=== PATIENT | female | born 1955 | race African-American/Black ===

== ENCOUNTER → 2020-01-30 | Outpatient (CLI) | payer OTHER | LOC: LAB 08:09 | PROVIDERS: ATTEND Family Medicine | DX: Z20.828 Contact with and (suspected) exposure to other viral communicable diseases (principal) ==

== ENCOUNTER → 2020-02-06 | Outpatient (CLI) | payer OTHER ==
[2020-02-06 11:45] LABS: ABSOLUTE NEUTROPHILS 5.3 thou/uL (1.4-8.2); BASOPHILS 0.8 % (0.0-2.0); EOSINOPHILS 1.9 % (0.0-3.0); HEMATOCRIT 35.6 % (37.0-47.0); HEMOGLOBIN 11.4 gm/dL (12.0-15.0); LYMPHOCYTES 26.5 % (24.0-44.0); MCH 24.1 pg (26.0-34.0); MCHC 31.9 g/dL (28.0-37.0); MCV 75.4 fL (80.0-100.0); MONOCYTES 6.2 % (1.0-8.0); PLATELET COUNT 238 thou/uL (150-400); POLYS 64.6 % (36.0-66.0); RBC 4.72 mil/uL (4.20-5.00); RDW 15.7 % (10.5-14.5); WBC 8.2 thou/uL (4.0-11.0)
[2020-02-06 12:22] LABS: ALBUMIN 3.6 g/dL (3.4-5.0); ANION GAP 10 mmol/L (7-16); BUN 10 mg/dL (7-18); CALCIUM 9.1 mg/dL (8.5-10.1); CHLORIDE 105 mmol/L (98-107); CHOLESTEROL 269 mg/dL (<200); CO2 27 mmol/L (21-32); CREATININE 1.1 mg/dL (0.6-1.0); GLUCOSE 98 mg/dL (74-106); HDL CHOLESTEROL 116 mg/dL (>40); LDL CHOLESTEROL 136 mg/dL (<100); POTASSIUM 3.9 mmol/L (3.5-5.1); SGOT 27 U/L (15-37); SGPT 26 U/L (30-65); SODIUM 142 mmol/L (136-145); TC:HDL 2.3 Ratio (Not establshd); TOTAL BILIRUBIN 0.3 mg/dL (0.2-1.0); TOTAL PROTEIN 7.2 g/dL (6.4-8.2); TRIGLYCERIDE 86 mg/dL (<150); VLDL 17 mg/dL (<40)
[2020-02-07 02:06] LABS: GLYCOHEMOGLOBIN (HGB A1C) 5.6 % (4.8-5.6)
== END ==
LOC: LABMALL 11:19
PROVIDERS: ATTEND Family Medicine
DX: Z00.00 Encounter for general adult medical examination without abnormal findings (principal)

== ENCOUNTER → 2020-02-11 | Outpatient (CLI) | payer OTHER | LOC: RAD 10:01 | PROVIDERS: ATTEND Family Medicine | DX: Z12.31 Encounter for screening mammogram for malignant neoplasm of breast (principal); E04.2 Nontoxic multinodular goiter; R59.0 Localized enlarged lymph nodes ==

== ENCOUNTER → 2020-05-19 | Outpatient (CLI) | payer OTHER | LOC: LAB 13:45 | PROVIDERS: ATTEND Family Medicine | DX: Z20.828 Contact with and (suspected) exposure to other viral communicable diseases (principal) ==

== ENCOUNTER → 2021-03-04 | Outpatient (CLI) | payer OTHER | LOC: BC 13:49 | PROVIDERS: ATTEND Family Medicine | DX: Z12.31 Encounter for screening mammogram for malignant neoplasm of breast (principal); N64.89 Other specified disorders of breast ==

== ENCOUNTER → 2021-05-13 | Outpatient (CLI) | payer OTHER ==
[~2021-05-13] VITALS: Ht 162.6 cm; Wt 87.5 kg
[~2021-05-13] MED LIST: ACYCLOVIR 200200 MG PO; ASA81BEC PO; DULOXETINE HCL30 MG PO; NORVASC5 MG PO; PROVENTIL HFA6.7 G1 INH; VITAMIN C1000 MG PO; VITAMIN D325 MC2 PO
--- NOTE | 2021-05-16 11:02 | P ---
[facility] [place] [address] PROCEDURE REPORT Name: CAROL ISRAEL Room #: REG SHAHNAZ BynumCarlos AlbertoBrendaCarlos Alberto#: [id number] Admission: 05/13/21 Attend Phys: Nahid Younger Discharge: Date of : 55 Report #: [id number] THIS REPORT FOR: cc: Robbi Avina James A. DO McElhinney, Christian C. MD ~ DATE OF SERVICE: 05/13/2021 PROCEDURE PERFORMED: Upper endoscopy with esophageal dilation. HISTORY OF PRESENT ILLNESS: The patient is a 65-year-old female with a history of dysphagia for approximately 1 year. Denies any heartburn. No previous history of upper endoscopy. She is not taking any antacids. Plan is for upper endoscopy. DESCRIPTION OF PROCEDURE: The risks and benefits of the procedure were explained to the patient, those risks including but not limited to bleeding, perforation and the risk of sedation. She understood these risks and gave informed consent. Sedation was given using propofol per anesthesia. Next, using a standard Olympus upper endoscope, the scope was placed in the patient's mouth and advanced under direct vision through the esophagus, stomach and into the second portion of the duodenum. The larynx was normal in appearance. The upper and mid esophagus was normal. In the distal esophagus at the GE junction, grade a mild erosive esophagitis was noted. No evidence of stricture or narrowing. Upon entering the stomach, a small hiatal hernia was noted. Overall, the gastric mucosa was normal. The pylorus was normal and patent. The duodenal bulb, first and second portion were all normal. The scope was then brought back up into the patient's stomach and a Savary guidewire was inserted through the scope, leaving the guidewire in place as the scope was then withdrawn. Next, a 51-[place] Savary dilation of the esophagus was then performed without difficulty. The wire and dilator removed. The scope was reintroduced into the patient's stomach. No evidence of mucosal tear was noted after dilation. The scope was then withdrawn and the procedure terminated. The patient tolerated the procedure well. IMPRESSION: 1. Grade A erosive esophagitis. 2. Hiatal hernia. 3. Otherwise, normal upper endoscopy. RECOMMENDATIONS: 1. PPI therapy. 2. Observe the patient status post-dilation. [address] [address] PROCEDURE REPORT Name: LINDYCAROL Room #: REG SHAHNAZ Monsalve#: [id number] Admission: 05/13/21 Attend Phys: Nahid Younger Discharge: Date of : 55 Report #: [id number] Thank you for allowing me to participate in her care. <ELECTRONICALLY SIGNED> By: Nahid Rock MD 05/16/21 1102 [id number] Nahid Rock MD /nt
== END | disposition home or self-care (01) ==
LOC: GI 08:46
PROVIDERS: ATTEND Specialist
DX: R13.10 Dysphagia, unspecified (principal); K22.10 Ulcer of esophagus without bleeding; K44.9 Diaphragmatic hernia without obstruction or gangrene; I10 Essential (primary) hypertension; J43.9 Emphysema, unspecified; F41.9 Anxiety disorder, unspecified; G43.909 Migraine, unspecified, not intractable, without status migrainosus; K21.9 Gastro-esophageal reflux disease without esophagitis; Z98.890 Other specified postprocedural states; Z79.899 Other long term (current) drug therapy; Z20.822 Contact with and (suspected) exposure to COVID-19; Z88.8 Allergy status to other drugs, medicaments and biological substances
CPT/HCPCS: 62110; 62900